=== PATIENT | male | born 1960 | race Caucasian/White ===

== ENCOUNTER 2016-05-13 07:22 | Emergency (ER) | payer OTHER ==
[2016-05-13 09:28] LABS: BASOPHIL 0.2 % (0-2); EOSINOPHIL 0.6 % (0-5); HCT 48.5 % (42.0-52.0); HGB 17.2 g/dl (13.2-18.0); MCH 30.8 pg (25.0-31.0); MCHC 35.5 g/dL (32.0-36.0); MCV 86.8 fL (78.0-100.0); MPV 11.1 fL (6.0-9.5); NEUTROPHIL 82.2 % (41-80); PLT 199 K/uL (150-400); RBC 5.59 M/uL (4.70-6.00); RDW 13.8 % (11.5-14.0); WBC 14.9 K/uL (4.0-10.5)
[2016-05-13 09:48] LABS: ALBUMIN 3.9 g/dL (3.5-5.0); BILIRUBIN - TOTAL 0.3 mg/dL (0.1-1.0); GLOBULIN (CALCULATION) 2.2 g/dL (2.2-4.2); POTASSIUM 4.2 mmol/L (3.5-5.1); TOTAL PROTEIN 6.1 g/dL (6.4-8.3)
== END 2016-05-13 13:10 | disposition home or self-care (01) ==
LOC: FER 07:22
PROVIDERS: Internal Medicine
DX: T88.6XXA Anaphylactic reaction due to adverse effect of correct drug or medicament properly administered, initial encounter (principal); T78.3XXA Angioneurotic edema, initial encounter; R55 Syncope and collapse; I25.810 Atherosclerosis of coronary artery bypass graft(s) without angina pectoris; Z79.899 Other long term (current) drug therapy; Z95.1 Presence of aortocoronary bypass graft
CPT/HCPCS: 36415; 70450; 80053; 84484; 85025; 93005; J2930